=== PATIENT | male | born 1965 | race African-American/Black ===

== ENCOUNTER 2017-02-24 09:42 | Day surgery (SDC) | payer BC ==
[2017-02-24 10:19] VITALS: BMI 25.1
[2017-02-24] MEDS ORDERED: LIDOCAINE HCL/PF 2% SDV 5ML VIAL ONE (10:25)
[2017-02-24] MEDS ORDERED: PROPOFOL 20 ML ONE (10:25)
[2017-02-24 11:13] VITALS: TEMP 98.1
[2017-02-24 11:56] VITALS: BP 112/75; PULSE 64
--- NOTE | 2017-02-25 17:02 | PATH ---
Surgical Pathology Report Patient Name: MANUELA AVILA [facility]. Rec. #: [id number] /Age/Gender: 1965 (Age: 52) / M Account: [id number] Location: [facility]-ENDOSCOPY Taken: 02/24/2017 Received: 02/24/2017 Reported: 02/25/2017 Physicians: Nico Thayer M.D. Specimen(s) Received BX RECTAL MASS Clinical History Follow up rectal mass Rectal mass Final Diagnosis RECTUM, BIOPSY: TUBULOVILLOUS ADENOMA. Electronically Signed Yolie Melara M.D. Gross Description Received in formalin labeled "rectal mass," is a 1.1 x 0.9 x 0.3 cm aggregate of multiple monreal, irregular to polypoid soft tissue fragments. The formalin is filtered and the specimen is entirely submitted in one cassette. DL/02/24/2017 saudi/02/24/2017
== END 2017-02-24 11:59 | disposition home or self-care (01) ==
LOC: JASU-ENDO 09:42
PROVIDERS: ATTEND Internal Medicine Gastroenterology
PROC: 0D5P8ZZ Destruction of Rectum, Via Natural or Artificial Opening Endoscopic (ICD-10-PCS; principal; 2017-02-24 09:30)
DX: D12.8 Benign neoplasm of rectum (principal); Z53.9 Procedure and treatment not carried out, unspecified reason
CPT/HCPCS: 88305-TC